=== PATIENT | female | born 1945 | race Caucasian/White ===

== ENCOUNTER → 2023-04-19 13:19 | Outpatient (REF) | payer MEDICARE, OTHER, SELFPAY ==
[2023-04-19 14:21] LABS: Blood Urea Nitrogen 40 mg/dl (7-17)
== END ==
LOC: REG 13:19
PROVIDERS: ATTENDING PHYSICIAN Obstetrics & Gynecology Gynecology
DX: Z85.43 Personal history of malignant neoplasm of ovary (principal)
CPT/HCPCS: 36415; 82565; 84520

== ENCOUNTER → 2023-04-25 11:21 | Outpatient (REF) | payer MEDICARE, OTHER, SELFPAY | LOC: HWRAD 11:21 | PROVIDERS: ATTENDING PHYSICIAN Obstetrics & Gynecology Gynecology; FAMILY PHYSICIAN Internal Medicine | DX: Z85.43 Personal history of malignant neoplasm of ovary (principal); R10.2 Pelvic and perineal pain | CPT/HCPCS: 74177; Q9967 ==

== ENCOUNTER → 2023-05-22 10:05 | Outpatient (REF) | payer MEDICARE, OTHER, SELFPAY ==
[2023-05-22 11:13] LABS: ALT (SGPT) 25 U/L (0-35); AST (SGOT) 29 U/L (14-36); Albumin 4.5 g/dl (3.5-5.0); Alkaline Phosphatase 86 U/L (38-126); Blood Urea Nitrogen 24 mg/dl (7-17); Calcium 9.4 mg/dl (8.4-10.2); Carbon Dioxide 25 mmol/L (22-30); Chloride 108 mmol/L (98-107); Glucose 85 mg/dl (70-99); HDL Cholesterol 55 mg/dl; LDL Cholesterol, Calculated 39 mg/dl; Potassium 4.5 mmol/L (3.5-5.1); Sodium 137 mmol/L (135-145); Total Bilirubin 0.6 mg/dl (0.2-1.3); Total Cholesterol 117 mg/dl (50-199); Total Protein 7.2 g/dl (6.3-8.2); Triglyceride 117 mg/dl (10-149); Uric Acid 8.9 mg/dl (2.5-6.2); Very Low Density Lipoprotein 23 mg/dl (0-30); eGFR 57.31
[2023-05-22 11:18] LABS: Erythrocyte Sed Rate 8 mm/hour (0-20)
== END ==
LOC: REG 10:05
PROVIDERS: ATTENDING PHYSICIAN Nurse Practitioner Adult Health
DX: M10.9 Gout, unspecified (principal); E78.2 Mixed hyperlipidemia
CPT/HCPCS: 36415; 80053; 80061; 84550; 85652

== ENCOUNTER → 2023-06-06 09:24 | Outpatient (REF) | payer MEDICARE, OTHER, SELFPAY ==
[2023-06-06 09:57] LABS: % Basophils 1.3 % (0-2); % Lymphocytes 28.1 % (20.5-51.1); % Monocytes 7.5 % (1.7-9.3); % Neutrophils 58.1 % (42.2-75.2); Absolute Basophils 0.1 10^3/uL (0-0.2); Absolute Eosinophils 0.2 10^3/uL (0-0.7); Absolute Lymphocytes 1.1 10^3/uL (1.2-3.4); Absolute Monocytes 0.3 10^3/uL (0.1-0.6); Absolute Neutrophils 2.3 10^3/uL (1.4-6.5); Hematocrit 35.7 % (37.0-47.0); Hemoglobin 11.8 g/dL (12.0-16.0); Mean Corp Hgb Conc. 33.1 g/dL (33.0-37.0); Mean Corpuscular Hgb 31.2 pg (27.0-31.0); Mean Corpuscular Volume 94.4 fL (81.0-99.0); Mean Platelet Volume 10.2 fL (7.4-10.4); Nucleated Red Blood Cells % 0 %; Platelet Count 188 10^3/uL (130-400); Red Blood Cell Count 3.78 10^6/uL (4.20-5.40); Red Cell Dist. Width 14.4 % (11.5-14.5)
[2023-06-06 10:30] LABS: HDL Cholesterol 58 mg/dl; Iron 91 ug/dl (37-170); LDL Cholesterol, Calculated 36 mg/dl; Total Cholesterol 111 mg/dl (50-199); Triglyceride 87 mg/dl (10-149); Very Low Density Lipoprotein 17 mg/dl (0-30)
[2023-06-06 10:40] LABS: Percent Saturation 25 % (20-50); Total Iron Binding Capacity 360 ug/dl (265-497)
[2023-06-06 10:58] LABS: TSH Reflex To Free T4 1.21 uIU/ml (0.47-4.68)
== END ==
LOC: REG 09:24
PROVIDERS: ATTENDING PHYSICIAN Internal Medicine
DX: I10 Essential (primary) hypertension (principal); E78.00 Pure hypercholesterolemia, unspecified; M10.9 Gout, unspecified; E79.0 Hyperuricemia without signs of inflammatory arthritis and tophaceous disease; M06.9 Rheumatoid arthritis, unspecified; M48.061 Spinal stenosis, lumbar region without neurogenic claudication; D64.9 Anemia, unspecified; K21.9 Gastro-esophageal reflux disease without esophagitis
CPT/HCPCS: 36415; 80061; 83540; 83550; 84443; 85025

== ENCOUNTER 2023-07-21 20:08 | Emergency (ER) | payer MEDICARE, OTHER, SELFPAY ==
[2023-07-21 20:25] VITALS: BP 147/68
--- NOTE | 2023-07-21 22:43 | ED.GENMED ---
History of Present Illness
<ALEJANDRO Henry - Last Filed: 07/21/23 22:56>
General
Chief Complaint: Back Pain
Source: patient and family
Exam Limitations: none
Time Seen by Provider: 07/21/23 22:17
Nursing documentation reviewed up to this point in time: agreed with
Travel History
Have you had any contact with someone who has COVID-19?: No
Do you have any symptoms of coronavirus? Fever > 100 degrees, chills, cough, shortness of breath, sore throat, loss of taste or smell, muscle aches, or headache?: No
History of Present Illness
History of Present Illness:
This is a 78 year old female with history of spinal stenosis who presents to the ED with complaint of worsening lower back pain x1 week. Last week she was volunteering at her [employer] requiring her to stand for long periods of time. She reports her
back pain began to radiate down her RLE. She had difficulty getting up from the couch due to the pain. She was eventually able to get up and ambulate using her walker. She follows Dr. Castañeda for her back pain. She had radiofrequency ablation that
did not provide relief. She had Toradol injections last week that provided relief. She denies any changes to bladder or bowel habits, dysuria, frequent/urgency. She denies slurred speech, loss of extremity function, facial droop. She is on Coumadin
and checks her INR every two weeks at home.
Past History
<ALEJANDRO Henry - Last Filed: 07/21/23 22:56>
Past History
ED Past Medical History: CAD, Cancer (skin cancer, ovaarian cancer), HTN, Hypercholesterolemia, Other (fainting), Other (epistaxis) and Other (ascesnding aortic aneurysm)
ED Past Surgical History: Cardiac ([place] aortic valve, pulm fibrosis), Gynecological (total hysterectomy), Orthopedic and Other (cataract surgery, nasal surgery)
Social History
Tobacco: Non-smoker
Alcohol: None
Drug: None
Personal:
Living: alone
Employment: Employed
Family History
Family History: Other (no signficant)
Review of Systems
<ALEJANDRO Henry - Last Filed: 07/21/23 22:56>
Review of Systems
Allergies reviewed?: Yes
All Other Systems: Not applicable
Constitutional: Reports no symptoms
EENT: Reports no symptoms
Respiratory: Reports no symptoms
Cardiac: Reports no symptoms
ABD/GI: Reports no symptoms
: Reports no symptoms
Musculoskeletal: Reports back pain (Lower back pain radiating down her RLE)
Skin: Reports no symptoms
Neurological: Reports no symptoms
Endocrine: Reports no symptoms
Hematologic/Lymphatic: Reports no symptoms
Psychiatric: Reports no symptoms
Phy Exam
<ST ElaineIA - Last Filed: 07/21/23 22:56>
General Physical Exam
General Presentation: well appearing and no apparent distress
General Skin: warm and dry
General Habitus: normal
General Mental: alert
General Hydration: appears well hydrated
ENT Exam
ENT Exam: EOMI, pharynx normal, neck supple and normocephalic
Eye Exam
Eye Exam: PERRL, cornea clear and conjunctiva normal
Cardiovascular Exam
Cardiovascular Exam: regular rate/rhythm, no edema, no murmur and normal peripheral pulses
Pulmonary Exam
Pulmonary Exam: lungs clear, no respiratory distress, no rales, no crackles, no rhonchi, no stridor, no wheezing and no cough
Gastrointestinal Exam
Gastrointestinal Exam: normal bowel sounds, non tender, soft, no organomegaly, no pulsatile mass and non distended
Neurological Exam
Neurological Exam: alert, oriented x3, no motor deficits and speech normal
Musculoskeletal Exam
Musculoskeletal Exam: full ROM, back pain (Pain with straight leg raise ) and no edema
Skin Exam
Skin Exam: normal color, warm/dry, no rash and no petechia
Psychiatric Exam
Psychiatric Exam: normal mood/affect
Course
<ALEJANDRO Henry - Last Filed: 07/21/23 22:56>
Orders/Labs/Results
Orders:
Orders
07/21/23 23:01
Ketorolac [Toradol] 30 mg IM NOW STA
Lidocaine [Lidocaine 4% Patch] 2 patch TOPICAL NOW STA
Vital Signs
Initial and Last Documented VS:
Initial Vital Signs
Temp Pulse Resp BP Pulse Ox
97.5 F 70 18 147/68 99
07/21/23 20:25 07/21/23 20:25 07/21/23 20:25 07/21/23 20:25 07/21/23 20:25
Last Documented Vital Signs
Temp Pulse Resp BP Pulse Ox
97.5 F 70 18 147/68 99
07/21/23 20:25 07/21/23 20:25 07/21/23 20:25 07/21/23 20:25 07/21/23 20:25
<Liliane Nayak DO - Last Filed: 07/22/23 00:34>
Orders/Labs/Results
Orders:
Orders
07/21/23 23:01
Ketorolac [Toradol] 30 mg IM NOW STA
Lidocaine [Lidocaine 4% Patch] 2 patch TOPICAL NOW STA
Vital Signs
Initial and Last Documented VS:
Initial Vital Signs
Temp Pulse Resp BP Pulse Ox
97.5 F 70 18 147/68 99
07/21/23 20:25 07/21/23 20:25 07/21/23 20:25 07/21/23 20:25 07/21/23 20:25
Last Documented Vital Signs
Temp Pulse Resp BP Pulse Ox
97.5 F 70 18 147/68 99
07/21/23 20:25 07/21/23 20:25 07/21/23 20:25 07/21/23 20:25 07/21/23 20:25
<ALEJANDRO Henry - Last Filed: 07/21/23 22:56>
MDM/Problems Addressed
Differential Diagnosis Includes:
Sciatica, spinal stenosis exacerbation, cauda equina, CVA, pyelonephritis
Cauda equina considered due to lower back pain, however no changes to her bowel/bladder habits. CVA less likely due to no stroke like symptoms including facial droop, slurred speech, loss of extremity function. Pyelonephritis considered due to lower
back pain, however she denies urinary symptoms or fever. I suspect sciatica with spinal stenosis exacerbation. She is having pain with her lower back radiating down her RLE. She was standing for a long period of time earlier this week that could
have exacerbated her back pain.
Chronic conditions affecting care: Other (Chronic back pain)
<Liliane Nayak DO - Last Filed: 07/22/23 00:34>
*Pulse Oximetry
Patient hypoxic: no
*Critical Care Note
Total Time (30-74mins, 75-104mins- exclusive of procedures): Not Applicable
ED Attending Note
<ALEJANDRO Henry - Last Filed: 07/21/23 22:56>
-
Portions of this chart may have been created with voice recognition software.� Occasional wrong word or��sound alike� substitutions may have occurred due to the inherent limitations of voice recognition software.
<Liliane Nayak DO - Last Filed: 07/22/23 00:34>
ED Attending Note
Patient seen and examined by attending physician: Yes
I performed the substantive portion of visit, reviewed & personally made and approve the management plan that is documented in note by myself or HERMINIA.: Yes
I performed a history and physical exam of patient and discussed management with resident, I reviewed resident's note and agree with documented findings and plan of care.: Yes
ED Attending Note:
This is an 78-year-old woman who resides at home, independently. She has history of aortic valve replacement chronically maintained on Coumadin. History of pulmonary fibrosis, chronic low back pain/spinal stenosis for which she follows with
orthopedics as well as pain management, Dr. Castañeda. She admits that low back pain has been more persistent, worsened over the past several months, no significant relief with radiofrequency ablation of right lumbar region nerve roots the end of
May. She notes brief moderate improvement after local trigger point injections with Toradol 5 days ago.
She has intolerance to steroids and has been recommended to undergo lumbar laminectomy but declines this procedure due to fear of recurrent TIA with discontinuation of Coumadin.
She is maintained on CBD oil, occasionally takes Tylenol.
She underwent right mandibular dental extraction 2 days ago and has been taking sporadic doses of Tylenol with codeine (an old Rx) with moderate relief of dental extraction site pain but only mild relief of low back pain.
She denies fall, no dizziness nor lightheadedness, no fever nor chills.
Coumadin level has been stable, INR of 2.5 2 days ago.
She admits to increased low back pain after assisting with a rummage sale July 10. Low back pain is most noted right lower lumbar region that radiates to her right buttock with a occasional radiation to her right posterior/right anteromedial thigh.
She denies weakness nor numbness, no saddle anesthesia, no difficulty moving her bowels or bladder.
Pain is worse with movement especially with attempting to stand and with ambulation requiring use of walker today to assist with ambulation. She generally does not need her walker nor cane to ambulate.
GENERAL: 78-year-old woman appears her stated age, awake and alert, pleasant, appears in no acute distress. Accompanied by family.
EYE: pupils equal and reactive. anicteric
NECK: Supple, nontender, no meningismus, no significant adenopathy. There is very minimal brownish to dark purple ecchymosis right inferior mandible region with mild local soft tissue swelling that is minimally tender to palpation. There is no
erythema. No palpable heat.
ENT: oral mucosa is moist.
CARDIAC: Regular rate and rhythm.
LUNGS: Clear breath sounds bilaterally, no acute respiratory distress, no wheezes/rales/rhonchi
ABDOMEN: Soft, nondistended, without focal tenderness, no r/g, no cvat. normoactive BS.
BACK: pt able to sit up with ease and without assistance. No midline bony tenderness. Mil,d right lower lumbar paravertebral muscle spasm. straight leg raising mildly (+)on right.
NEUROLOGICAL: Alert and oriented x3, no focal neuro deficits. Motor strength is 5/5 bilaterally. Gross sensation is intact. DTR symmetric.
SKIN: Warm and dry, normal color, skin intact. No rash.
MUSCULOSKELETAL: No C/C/E. peripheral pulses are full and equal b/l. Very minimal tenderness right posterior hip but full hip range of motion without difficulty nor pain.
PSYCH: Normal and appropriate interaction.
Patient presents with acute exacerbation of chronic low back pain with known history of spinal stenosis, lumbar DJD. Acute on chronic back pain has been persistent over the past 2 weeks without associated injury nor fall.
No red flags in history nor exam. Patient admits that back pain has been essentially unchanged over the past 2 weeks just persistent and much worse with ambulation.
Chronically bina on Coumadin thus long-term NSAIDs are to be avoided but will give a one-time dose of Toradol and patient has tolerated Toradol in the past without adverse effect.
Chronically maintained on Coumadin but reports therapeutic INR most recent evaluation just 2 days ago at 2.5.
Along with Toradol will trial local lidocaine patch.
With no history of fall and ongoing symptoms over the past at least 2 weeks, no indication for imaging at this point.
07/22/2023 0029 AM
Patient reports moderate improvement in pain, has successfully ambulated with steady gait.
Will discharge to home with recommendations for prompt follow-up with Dr. Castañeda for recheck.
Discharge Plan
Departure
Patient Disposition: Home (Routine Discharge)
Date of Disposition: 07/22/23
Time of Disposition: 00:29
Patient with high blood pressure during this ER visit?: No
Condition: Good
Discharge Problem:
Acute exacerbation of chronic low back pain, Spinal stenosis of lumbar region with radiculopathy
Instructions: Lumbar spinal stenosis, Low Back Pain (DC)
Prescriptions:
No Action
furosemide 40 MG tablet
60 mg PO Daily
Diovan 160 MG capsule
160 mg PO Daily
warfarin [Jantoven] 3 MG tablet
3 mg PO DAILY
potassium chloride [Klor-Con] 20 MEQ packet
20 meq PO Daily
pravastatin 80 MG tablet
80 mg PO Daily
desloratadine [Clarinex] 5 MG tablet
5 mg PO Daily
montelukast 10 MG tablet
10 mg PO Daily
magnesium 250 MG tablet
250 mg PO DAILY
L.acidoph, paracasei,B. lactis 1 EACH capsule
1 ea PO DAILY
Tart Chaves Extract 1,000 MG capsule
1,000 mg PO DAILY
famotidine [Pepcid] 20 mg Tablet
20 mg PO BID
diltiazem HCl [Diltzac ER] 120 mg Capsule,Extended Release 24 Hr
120 mg PO DAILY
Vitamin C 100 mg Tablet
200 mg PO DAILY
vitamin B complex Tablet
1 tab PO DAILY
calcium citrate 150 mg Capsule
PO
hydroxyzine HCl 10 mg Tablet
10 mg PO DAILY
coenzyme Q10 [CoQ-10] 100 mg Capsule
400 mg PO DAILY
Vitamin D3 100 mcg (4,000 unit) Capsule
200 unit PO DAILY
fluticasone furoate-vilanterol [Breo Ellipta] 100-25 mcg/dose Blister With Device
1 inh INHALATION DAILY
Referrals:
Jay Larson MD [Family Provider] - Call in 1-3 days for appt
Leo Castañeda MD [Active] - Call in 1-3 days for appt
Interventions
Interventions:
*Risk Screen - Suicide Last Done: 07/21/23 20:25
*General Assessment Last Done: 07/21/23 20:25
*Neglect/Abuse Screening Last Done: 07/21/23 20:25
Discharge Date and Time
Print Language: ROMANIAN
[2023-07-21] MEDS: LIDOCAINE 4% PATCH 2 PATCH TOPICAL (23:14)
[2023-07-21] MEDS: TORADOL 30 MG IM (23:14)
--- NOTE | 2023-07-22 00:20 | EDRN ---
Patient was able to get up and walk around with decreased pain and feeling much better at this time, Dr. Nayak aware.
== END 2023-07-22 00:48 | disposition home or self-care (01) ==
LOC: EMR 20:08
PROVIDERS: EMERGENCY PHYSICIAN Emergency Medicine; FAMILY PHYSICIAN Internal Medicine
DX: G89.29 Other chronic pain (principal); M54.50 Low back pain, unspecified; M48.061 Spinal stenosis, lumbar region without neurogenic claudication
CPT/HCPCS: 99284; 96372

== ENCOUNTER → 2023-09-05 11:42 | Outpatient (REF) | payer MEDICARE, OTHER, SELFPAY ==
[2023-09-05 12:47] LABS: Uric Acid 4.8 mg/dl (2.5-6.2)
== END ==
LOC: REG 11:42
PROVIDERS: ATTENDING PHYSICIAN Internal Medicine
DX: M10.9 Gout, unspecified (principal)
CPT/HCPCS: 36415; 84550

== ENCOUNTER → 2023-11-28 11:04 | Outpatient (REF) | payer MEDICARE, OTHER, SELFPAY | LOC: WDC 11:04 | PROVIDERS: ATTENDING PHYSICIAN Obstetrics & Gynecology Gynecology; FAMILY PHYSICIAN Internal Medicine | DX: Z12.31 Encounter for screening mammogram for malignant neoplasm of breast (principal) | CPT/HCPCS: 77063; 77067 ==

== ENCOUNTER → 2024-04-11 10:06 | Outpatient (REF) | payer MEDICARE, OTHER, SELFPAY | LOC: RCS 10:06 | PROVIDERS: ATTENDING PHYSICIAN Internal Medicine Cardiovascular Disease; FAMILY PHYSICIAN Internal Medicine | DX: T82.09XD Other mechanical complication of heart valve prosthesis, subsequent encounter (principal); I25.10 Atherosclerotic heart disease of native coronary artery without angina pectoris; I34.1 Nonrheumatic mitral (valve) prolapse | CPT/HCPCS: 93306 ==

== ENCOUNTER → 2024-05-09 09:51 | Outpatient (REF) | payer MEDICARE, OTHER, SELFPAY | LOC: RAD 09:51 | PROVIDERS: ATTENDING PHYSICIAN Internal Medicine; FAMILY PHYSICIAN Internal Medicine | DX: M81.0 Age-related osteoporosis without current pathological fracture (principal); Z13.820 Encounter for screening for osteoporosis | CPT/HCPCS: 77080; 77081 ==

== ENCOUNTER → 2024-06-17 09:20 | Outpatient (REF) | payer MEDICARE, OTHER, SELFPAY | LOC: RAD 09:20 | PROVIDERS: ATTENDING PHYSICIAN Internal Medicine Gastroenterology; FAMILY PHYSICIAN Internal Medicine | DX: R14.2 Eructation (principal) | CPT/HCPCS: 74246 ==

== ENCOUNTER → 2024-10-03 10:36 | Outpatient (REF) | payer MEDICARE, OTHER, SELFPAY ==
[2024-10-03 11:38] LABS: INR 3.09; PT 31.8 Sec (11.4-14.6)
[2024-10-03 11:53] LABS: ALT (SGPT) 23 U/L (0-35); AST (SGOT) 26 U/L (14-36); Albumin 4.3 g/dl (3.5-5.0); Alkaline Phosphatase 85 U/L (38-126); Blood Urea Nitrogen 23 mg/dl (7-17); Calcium 9.0 mg/dl (8.4-10.2); Carbon Dioxide 24 mmol/L (22-30); Chloride 105 mmol/L (98-107); Glucose 87 mg/dl (70-99); Potassium 4.5 mmol/L (3.5-5.1); Sodium 138 mmol/L (135-145); Total Protein 6.9 g/dl (6.3-8.2); eGFR > 60.00
== END ==
LOC: REG 10:36
PROVIDERS: ATTENDING PHYSICIAN Internal Medicine Cardiovascular Disease; FAMILY PHYSICIAN Internal Medicine
DX: I10 Essential (primary) hypertension (principal); Z79.01 Long term (current) use of anticoagulants
CPT/HCPCS: 36415; 80053; 85610

== ENCOUNTER 2024-10-10 06:27 | Day surgery (SDC) | payer MEDICARE, OTHER, SELFPAY | END 2024-10-10 10:16 | disposition home or self-care (01) | LOC: GI 06:27 | PROVIDERS: ATTENDING PHYSICIAN Internal Medicine Gastroenterology | DX: R12 Heartburn (principal); K44.9 Diaphragmatic hernia without obstruction or gangrene; R13.10 Dysphagia, unspecified | CPT/HCPCS: 43235 ==

== ENCOUNTER → 2024-10-15 07:21 | Outpatient (REF) | payer MEDICARE, OTHER, SELFPAY | LOC: RAD 07:21 | PROVIDERS: ATTENDING PHYSICIAN Internal Medicine Gastroenterology; FAMILY PHYSICIAN Internal Medicine | DX: R12 Heartburn (principal); R14.2 Eructation; R13.12 Dysphagia, oropharyngeal phase; K59.09 Other constipation; R10.11 Right upper quadrant pain | CPT/HCPCS: 76700 ==

== ENCOUNTER → 2024-11-03 14:10 | Outpatient (REF) | payer MEDICARE, OTHER, SELFPAY | LOC: RAD 14:10 | PROVIDERS: ATTENDING PHYSICIAN Internal Medicine; FAMILY PHYSICIAN Internal Medicine | DX: M54.50 Low back pain, unspecified (principal); M54.6 Pain in thoracic spine | CPT/HCPCS: 72072; 72100 ==

== ENCOUNTER → 2024-12-03 08:01 | Outpatient (REF) | payer MEDICARE, OTHER, SELFPAY ==
[2024-12-03 09:27] LABS: Hematocrit 34.8 % (37.0-47.0); Hemoglobin 11.6 g/dL (12.0-16.0); Mean Corp Hgb Conc. 33.3 g/dL (33.0-37.0); Mean Corpuscular Volume 95.6 fL (81.0-99.0); Nucleated Red Blood Cells % 0 %; Platelet Count 219 10^3/uL (130-400); Red Cell Dist. Width 14.9 % (11.5-14.5)
[2024-12-03 10:14] LABS: ALT (SGPT) 28 U/L (0-35); AST (SGOT) 28 U/L (14-36); Albumin 4.5 g/dl (3.5-5.0); Alkaline Phosphatase 79 U/L (38-126); Blood Urea Nitrogen 33 mg/dl (7-17); Calcium 9.8 mg/dl (8.4-10.2); Carbon Dioxide 25 mmol/L (22-30); Chloride 107 mmol/L (98-107); Glucose 78 mg/dl (70-99); HDL Cholesterol 56 mg/dl; LDL Cholesterol, Calculated 49 mg/dl; Potassium 4.8 mmol/L (3.5-5.1); Sodium 138 mmol/L (135-145); Total Protein 7.4 g/dl (6.3-8.2); Very Low Density Lipoprotein 14 mg/dl (0-30); eGFR 56.60
[2024-12-04 15:11] LABS: Iron 88 ug/dl (37-170)
[2024-12-04 15:21] LABS: Total Iron Binding Capacity 387 ug/dl (265-497)
[2024-12-04 16:35] LABS: Folate > 20.0 ng/ml (2.76-20); Vitamin B12 825 pg/ml (239-931)
== END ==
LOC: WDC 08:01
PROVIDERS: ATTENDING PHYSICIAN Obstetrics & Gynecology Gynecology; FAMILY PHYSICIAN Internal Medicine
DX: I10 Essential (primary) hypertension (principal); E78.00 Pure hypercholesterolemia, unspecified; E66.9 Obesity, unspecified; Z12.31 Encounter for screening mammogram for malignant neoplasm of breast; D64.9 Anemia, unspecified; K90.0 Celiac disease
CPT/HCPCS: 36415; 77063; 77067; 80053; 80061; 82607; 82746; 82784; 83516; 83540; 83550; 84443; 85025; 86231

== ENCOUNTER → 2024-12-20 13:15 | Outpatient (REF) | payer MEDICARE, OTHER, SELFPAY | LOC: PAVMRI 13:15 | PROVIDERS: ATTENDING PHYSICIAN Internal Medicine | DX: M48.061 Spinal stenosis, lumbar region without neurogenic claudication (principal); M47.816 Spondylosis without myelopathy or radiculopathy, lumbar region; M54.50 Low back pain, unspecified; G89.29 Other chronic pain | CPT/HCPCS: 72146 ==

== ENCOUNTER → 2024-12-22 11:22 | Outpatient (REF) | payer MEDICARE, OTHER, SELFPAY | LOC: REG 11:22 | PROVIDERS: ATTENDING PHYSICIAN Internal Medicine Cardiovascular Disease | DX: I50.32 Chronic diastolic (congestive) heart failure (principal) | CPT/HCPCS: 36415; 71046; 83880 ==